=== PATIENT | female | born 1965 | race Caucasian/White ===

== ENCOUNTER → 2019-01-25 | Outpatient (CLI) | payer OTHER | LOC: CAT 08:35 | DX: Z13.6 Encounter for screening for cardiovascular disorders (principal); E78.00 Pure hypercholesterolemia, unspecified; I25.10 Atherosclerotic heart disease of native coronary artery without angina pectoris ==

== ENCOUNTER → 2019-01-25 | Outpatient (CLI) | payer OTHER | LOC: BC 09:07 | DX: Z12.31 Encounter for screening mammogram for malignant neoplasm of breast (principal) ==

== ENCOUNTER → 2019-07-26 | Outpatient (CLI) | payer OTHER | LOC: CAT 14:42 | DX: R16.0 Hepatomegaly, not elsewhere classified (principal); K76.89 Other specified diseases of liver ==